=== PATIENT | female | born 1990 | race Caucasian/White ===

== ENCOUNTER 2024-06-29 23:35 | Emergency (ER) | payer MEDICAID, SELFPAY ==
--- NOTE | ~2024-06-29 | XR_ITS ---
CLINICAL HISTORY: fall 4 view, chest and left ribs Comparison: None Findings: No acute left-sided rib fracture injuries are identified. Normal heart size. No focal pulmonary consolidation, pneumothorax, or pleural effusion. IMPRESSION: 1. No acute left rib fracture injury identified. 2. No acute cardiopulmonary process. No focal pulmonary consolidation. This document has been electronically signed by: Jovani Whitley MD on 06/30/2024 04:01:46
[2024-06-30] VITALS: BP 108/78; BP 113/83; PULSE 66; PULSE 80; RESP 18; TEMP 36.7; O2SAT 100; O2SAT 98; BMI 28.5
--- NOTE | 2024-06-30 | ECG_ITS ---
Test Reason : SYNCOPE Blood Pressure : */* mmHG Vent. Rate : 67 BPM Atrial Rate : 67 BPM P-R Int : 146 ms QRS Dur : 80 ms QT Int : 388 ms P-R-T Axes : 41 23 25 degrees QTcB Int : 409 ms Normal sinus rhythm Normal ECG No previous ECGs available Referred By: Generic ED Physician Electronically Signed By: GAGAN FLORES MD
[2024-06-30 00:39] LABS: Hematocrit 33.4 % (37.0-47.0); Mean Corpuscular HGB Conc 32.9 g/dl (31.0-35.0); Mean Corpuscular Hemoglobin 25.8 pg (27.0-33.0); Mean Corpuscular Volume 78.4 fL (80.0-98.0); Mean Platelet Volume 10.1 fL (9.4-12.3); Platelet Count 221 X10*3/uL (160-400); Red Blood Count 4.26 X10*6/uL (4.20-5.50); Red Cell Distribution Width 13.2 % (11.0-16.0); White Blood Count 4.2 X10*3/uL (4.8-10.8)
[2024-06-30 01:05] LABS: Alanine Aminotransferase 14 U/L (0-31); Albumin Level 3.7 g/dL (3.5-5.0); Alkaline Phosphatase 102 U/L (39-117); Anion Gap 12 (12-20); Aspartate Amino Transferase 15 U/L (5-31); Bilirubin Total 0.3 mg/dL (0.0-1.0); Blood Urea Nitrogen 15 mg/dL (9-16); Carbon Dioxide 21 mmol/L (22-29); Chloride 107 mmol/L (96-108); Creatinine Clr Calc Pharmacy 75.1; Estimated Glomerular Filt Rate > 60; Glucose Random 500 mg/dL (60-115); Magnesium 1.6 mg/dL (1.6-2.6); Potassium 4.3 mmol/L (3.3-5.1); Sodium 136 mmol/L (135-145); Total Protein 6.8 g/dL (6.5-8.0)
[2024-06-30 01:17] LABS: Beta-Hydroxybutyrate 1.44 mmol/L (0.02-0.27)
[2024-06-30 02:44] LABS: Glucose, Whole Blood 350 mg/dL (60-115)
[2024-06-30] MEDS: Insulin Regular, Human 100 UNIT/ML 10 ML VIAL IVPUSH (02:53)
[2024-06-30] MEDS: Lactated Ringers 1,000 ML 999 ML IV ×2 (02:54→04:37)
[2024-06-30 02:59] LABS: Venous Blood Gas Refer to POC result
[2024-06-30 03:04] LABS: HCG Quantitative < 2 mIU/mL
--- NOTE | 2024-06-30 03:04 | ECG_ITS ---
Test Reason : SYNCOPE Blood Pressure : */* mmHG Vent. Rate : 74 BPM Atrial Rate : 74 BPM P-R Int : 146 ms QRS Dur : 84 ms QT Int : 380 ms P-R-T Axes : 63 46 51 degrees QTcB Int : 421 ms Normal sinus rhythm Normal ECG When compared with ECG of 30-Jun-2024 00:11, No significant change was found Referred By: Joanna Zambrano Electronically Signed By: GAGAN FLORES MD
[2024-06-30 03:06] LABS: VBG Base Excess -0.5 mmol/L; VBG HCO3 24 mmol/L (22-26); VBG pCO2 42 mmHg; VBG pH 7.37 (7.32-7.43); VBG pO2 50 mmHg
--- NOTE | 2024-06-30 03:24 | ED_ITS ---
HPI - General Adult General Chief complaint: General Medical Stated complaint: HYPERGLYCEMIA Time Seen by Provider: 06/30/24 02:42 Source: patient and old records reviewed Mode of arrival: ambulatory Limitations: no limitations History of Present Illness ED Provider: KAY HPI narrative: 34 yo female with PMH of IDDM uses dexcom dosed before she came with sliding scale. She is not on any other medications, no recent travel, procedures, has been feeling well. She went downstairs to make her son a bottle the next thing she woke up on the floor with her boyfriend. She has left rib pain. No head or neck pain, no chest pain/dyspnea prior to event. No tongue biting, incontinence and no prior seizures. She was not hypoglycemic. SHe states other than some mild L rib pain she feels okay. 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) Location: chest Radiation: non-radiation Severity: moderate Quality: aching Pain Consistency: constant Relieving factors: none Exacerbating factors: movement Associated symptoms: denies other symptoms Treatments prior to arrival: none Related Data Previous Rx's ?Medication ?Instructions ?Recorded lidocaine 5 % topical patch 1 patch topical DAILY #30 ea 06/30/24 Allergies Allergy/AdvReac Type Severity Reaction Status Date / Time latex Allergy Hives Verified 06/30/24 00:07 Review of Systems 2 Review of Systems: Constitutional : No Fever, No Chills, No Fatigue ENT/Mouth : No sore throat, No Rhinorrhea Eyes: No Eye Pain, No Swelling, No Redness Cardiovascular : No Chest Pain, No SOB, No Dyspnea on Exertion, pos rib pain Respiratory : No Cough, No Sputum Gastrointestinal : No Nausea, No Vomiting, No Diarrhea, No abdominal Pain Genitourinary : No Dysuria, No Urinary Frequency, No Hematuria, Musculoskeletal : No joint pain, No Myalgias, No Joint Swelling Skin : No Skin Lesions, No rash Neuro : No Weakness, No Numbness, No Dizziness, no Headache, pos syncope Psych : No Anxiety/Panic, No Depression All other systems reviewed and are negative [facility] Past Medical History Attestation statement: The following information was validated with the patient. Source: old records reviewed Medical History (Updated 06/30/24 @ 04:50 by Joanna Zambrano DO) Diabetes Social History Social History (Updated 06/30/24 @ 03:32 by Joanna Zambrano DO) Alcohol intake: current Alcohol intake frequency: holidays/special occasions only Patient Tobacco Use Status: Never used Tobacco Physical Exam ED Vital Signs: Vital Signs - 24 hr 06/30/24 00:00 06/30/24 04:34 06/30/24 06:22 Temperature 98.1 F 97.6 F 97.6 F Pulse Rate 66 75 72 Respiratory Rate 18 16 16 Blood Pressure 113/83 113/70 117/62 Pulse Oximetry 98 100 95 Oxygen Delivery Method Room Air Room Air Room Air 06/30/24 06:26 Temperature 97.6 F Pulse Rate 72 Respiratory Rate 16 Blood Pressure 117/62 Pulse Oximetry 95 Oxygen Delivery Method Room Air BMI result Body Mass Index 28.5 Appearance: Alert. Oriented X3. No acute distress. Eyes: Pupils equal, round and reactive to light. ENT: Pharynx normal. atraumatic Neck: Normal inspection. Neck supple. CVS: Normal heart rate and rhythm. Pulses normal. Chest wall: ttp along L anterior lateral ribs Respiratory: No respiratory distress. Breath sounds normal. Abdomen: Soft and nontender. Skin: Skin warm and dry. Normal skin color. Normal skin turgor. Extremities: No lower extremity edema. No calf ttp Neuro: Oriented X 3. No motor deficit. No sensory deficit. CN2-12 intact Medications Administered Discontinued Medications Generic Name Dose Route Start Last Admin Trade Name Freq PRN Reason Stop Dose Admin Lactated Ringer's 1,000 mls @ 999 mls/hr 06/30/24 02:42 06/30/24 04:37 Lr IV 06/30/24 03:42 Infused .Q1H1M ONE Infusion Lactated Ringer's 1,000 mls @ 999 mls/hr 06/30/24 04:16 06/30/24 06:25 Lr IV 06/30/24 05:16 Infused .Q1H1M ONE Infusion Insulin Human Regular 5 unit 06/30/24 02:46 06/30/24 02:53 Insulin Regular, Human 100 Unit/Ml 10 Ml Vial IVPUSH 06/30/24 02:47 5 unit ONCE ONE Administration Medical Decision Making Medical Decision Making MDM Narrative: 34 yo female with PMH of IDDM here with c/o waking up on the ground she has no signs of head trauma, no signs of tongue biting, incontinence and no prior seizures. She has not had CP/SOB. She states she otherwise feels well but now has L rib pain when she moves or touches the ribs. I do not suspect ICH has no headache or signs of trauma. This could be syncope vs seizure vs arrythmia. Differential Diagnosis Differential Diagnoses: The differential diagnosis associated with the presentation includes syncope vs seizure vs arrythmia. Admission/Observation Consideration of admission/observation: Escalation of care including admission/observation considered glucose down no gap suspect dehydration she still has no symptoms she is reliable and stable for DC Lab Data MDM Lab Attestation statement: I reviewed the patient's lab results. 06/30/24 00:16 06/30/24 00:16 Labs: Lab Results 06/30/24 06/30/24 06/30/24 Range/Units 00:16 02:40 02:58 WBC 4.2 L (4.8-10.8) X10*3/uL RBC 4.26 (4.20-5.50) X10*6/uL Hgb 11.0 L (12.0-16.0) g/dl Hct 33.4 L (37.0-47.0) % MCV 78.4 L (80.0-98.0) fL MCH 25.8 L (27.0-33.0) pg MCHC 32.9 (31.0-35.0) g/dl RDW 13.2 (11.0-16.0) % Plt Count 221 (160-400) X10*3/uL MPV 10.1 (9.4-12.3) fL Absolute Nucleated RBC 0.000 (0.0-0.012) X10*3/uL Nucleated RBC % (auto) 0.0 (0.0-0.2) /100WBC VBG pH 7.37 (7.32-7.43) VBG pCO2 42 mmHg VBG pO2 50 mmHg VBG HCO3 24 (22-26) mmol/L VBG O2 Saturation 74.0 % VBG Base Excess -0.5 mmol/L Sodium 136 (135-145) mmol/L Potassium 4.3 (3.3-5.1) mmol/L Chloride 107 (96-108) mmol/L Carbon Dioxide 21 L (22-29) mmol/L Anion Gap 12 (12-20) BUN 15 (9-16) mg/dL Creatinine 1.00 (0.5-1.4) mg/dL Estim Creat Clear Calc 75.1 Estimated GFR > 60 POC Glucose 350 H* (60-115) mg/dL Random Glucose 500 H* (60-115) mg/dL Calcium 9.0 (8.4-10.2) mg/dL Magnesium 1.6 (1.6-2.6) mg/dL Total Bilirubin 0.3 (0.0-1.0) mg/dL AST 15 (5-31) U/L ALT 14 (0-31) U/L Alkaline Phosphatase 102 (39-117) U/L Total Protein 6.8 (6.5-8.0) g/dL Albumin 3.7 (3.5-5.0) g/dL Beta-Hydroxybutyrate 1.44 H (0.02-0.27) mmol/L Beta HCG, Quant < 2 mIU/mL Urine Color Urine Appearance Urine pH (5.0-9.0) Ur Specific Power (1.005-1.025) Urine Protein (Neg-Trace) mg/dL Urine Glucose (UA) (Negative) mg/dL Urine Ketones (Negative) mg/dL Urine Blood (Negative) Urine Nitrite (Negative) Ur Leukocyte Esterase (Negative) Urine RBC (0-2) /HPF Urine WBC (0-5) /HPF Ur Squamous Epith Cells (0-2) /HPF Urine Bacteria (None Seen) Hyaline Casts (0-2) /LPF 06/30/24 06/30/24 Range/Units 03:43 04:34 WBC (4.8-10.8) X10*3/uL RBC (4.20-5.50) X10*6/uL Hgb (12.0-16.0) g/dl Hct (37.0-47.0) % MCV (80.0-98.0) fL MCH (27.0-33.0) pg MCHC (31.0-35.0) g/dl RDW (11.0-16.0) % Plt Count (160-400) X10*3/uL MPV (9.4-12.3) fL Absolute Nucleated RBC (0.0-0.012) X10*3/uL Nucleated RBC % (auto) (0.0-0.2) /100WBC VBG pH (7.32-7.43) VBG pCO2 mmHg VBG pO2 mmHg VBG HCO3 (22-26) mmol/L VBG O2 Saturation % VBG Base Excess mmol/L Sodium (135-145) mmol/L Potassium (3.3-5.1) mmol/L Chloride (96-108) mmol/L Carbon Dioxide (22-29) mmol/L Anion Gap (12-20) BUN (9-16) mg/dL Creatinine (0.5-1.4) mg/dL Estim Creat Clear Calc Estimated GFR POC Glucose 239 H (60-115) mg/dL Random Glucose (60-115) mg/dL Calcium (8.4-10.2) mg/dL Magnesium (1.6-2.6) mg/dL Total Bilirubin (0.0-1.0) mg/dL AST (5-31) U/L ALT (0-31) U/L Alkaline Phosphatase (39-117) U/L Total Protein (6.5-8.0) g/dL Albumin (3.5-5.0) g/dL Beta-Hydroxybutyrate (0.02-0.27) mmol/L Beta HCG, Quant mIU/mL Urine Color Yellow Urine Appearance Clear Urine pH 6.5 (5.0-9.0) Ur Specific Power >= 1.030 H (1.005-1.025) Urine Protein Negative (Neg-Trace) mg/dL Urine Glucose (UA) >=1000 H (Negative) mg/dL Urine Ketones 80 (Negative) mg/dL Urine Blood Negative (Negative) Urine Nitrite Negative (Negative) Ur Leukocyte Esterase Negative (Negative) Urine RBC 0-2 (0-2) /HPF Urine WBC 0-5 (0-5) /HPF Ur Squamous Epith Cells 6-10 (0-2) /HPF Urine Bacteria Trace (None Seen) Hyaline Casts 0-2 (0-2) /LPF Independent Interpretation I performed an independent interpretation of an: EKG and Plain X-Ray (no PTX) Interpretation: Rate: 67 Rhythm: NSR [place]: normal Normal P waves. Normal YUMIKO. Normal QRS complex. ST T wave : normal no NEERAJ qTC: 409 prior studies: no acute ischemia The study has been interpreted contemporaneously by me. EKG #2 Rate: 74 Rhythm: NSR [place]: normal Normal P waves. Normal YUMIKO. Normal QRS complex. ST T wave : normal no NEERAJ qTC: 421 prior studies: no acute ischemia The study has been interpreted contemporaneously by me. . Radiology Impression Discussion of test interpretation with radiology: I have reviewed the radiologist's reading. External Record Review External record reviewed: Outpatient record Prescription Management I considered prescription management with: Pain Medication and Other Discharge Plan Discharge Clinical Impression: Acute hyperglycemia Syncope Qualifiers: Syncope type: unspecified Qualified Code(s): R55 - Syncope and collapse Contusion of rib Qualifiers: Encounter type: initial encounter Laterality: unspecified laterality Qualified Code(s): S20.219A - Contusion of unspecified front wall of thorax, initial encounter Patient Disposition: Home, Self-Care Instructions: Syncope (ED), Diabetic Hyperglycemia (ED), Rib Contusion (ED) Additional Instructions: stay hydrated and monitor your blood sugar today return for worsening symptoms such as repeat fainting, chest pain, trouble breathing, dizziness as for the ribs take tylenol or motrin as needed for the pain - make sure you are taking deep breaths or you could develop pneumonia monitor for increased dyspnea/fevers/cough follow up with your doctor for outpatient heart monitor Prescriptions: New lidocaine 5 % adhesive patch,medicated 1 patch topical DAILY Qty: 30 0RF Rx Instructions: leave on most painful area for up to 12 hrs Stand Alone Forms: Work/School Release Interventions: ED Discharge Assessment Last Done: 06/30/24 06:26 Discharge Date/Time: 06/30/24 06:27 Print Language: German
[2024-06-30 04:09] LABS: Appearance Urine Clear; Color Urine Yellow; Glucose Urine UA >=1000 mg/dL (Negative); Leukocyte Esterase Urine Negative (Negative); Nitrite Urine Negative (Negative); PH 6.5 (5.0-9.0); Specific Gravity - Urine >= 1.030 (1.005-1.025); UMIC TRIGGER UA YES; Urine Blood Negative (Negative); Urine Ketones 80 mg/dL (Negative); Urine Protein Negative (Neg-Trace)
[2024-06-30 04:20] LABS: Bacteria Urine Trace (None Seen); Hyaline Casts Urine 0-2 /LPF (0-2); RBC Urine 0-2 /HPF (0-2); WBC Urine 0-5 /HPF (0-5)
[2024-06-30 04:34] VITALS: BP 113/70; PULSE 75; RESP 16; TEMP 36.4; O2SAT 100
[2024-06-30 04:38] LABS: Glucose, Whole Blood 239 mg/dL (60-115)
[2024-06-30 06:22] VITALS: BP 117/62; PULSE 72; RESP 16; TEMP 36.4; O2SAT 95
[2024-06-30 06:26] VITALS: BP 117/62; PULSE 72; RESP 16; TEMP 36.4; O2SAT 95
== END 2024-06-30 06:27 | disposition home or self-care (01) ==
PROVIDERS: Emergency Provider Emergency Medicine
DX: S20.219A Contusion of unspecified front wall of thorax, initial encounter (principal); W19.XXXA Unspecified fall, initial encounter; Y93.9 Activity, unspecified; Y92.9 Unspecified place or not applicable; Y99.9 Unspecified external cause status; R55 Syncope and collapse; R07.81 Pleurodynia
CPT/HCPCS: 36415; 71101; 80053; 81001; 82010; 82803; 82947; 83735; 84702; 85027; 93005; 96361; 96374; 99285; J7120

== ENCOUNTER → 2024-06-30 00:11 | Outpatient (BNV) | payer MEDICAID, SELFPAY | PROVIDERS: Emergency Provider Emergency Medicine; Visit Provider Internal Medicine Cardiovascular Disease | DX: R55 Syncope and collapse (principal) | CPT/HCPCS: 93010 ==

== ENCOUNTER → 2024-06-30 03:04 | Outpatient (BNV) | payer MEDICAID, SELFPAY | PROVIDERS: Emergency Provider Emergency Medicine; Visit Provider Radiology Diagnostic Radiology | DX: S20.20XA Contusion of thorax, unspecified, initial encounter (principal); W19.XXXA Unspecified fall, initial encounter | CPT/HCPCS: 71101 ==